=== PATIENT | female | born 1980 | race Caucasian/White ===

== ENCOUNTER 2018-11-07 13:43 | Emergency (ER) | payer MEDICAID, OTHER ==
[~2018-11-07] VITALS: Ht 162.6 cm; Wt 93.4 kg
[2018-11-07 15:40] VITALS: BP 140/93
== END 2018-11-07 16:20 | disposition home or self-care (01) ==
LOC: ER 13:47
DX: F41.9 Anxiety disorder, unspecified (principal); F12.10 Cannabis abuse, uncomplicated; E66.01 Morbid (severe) obesity due to excess calories; Z76.0 Encounter for issue of repeat prescription; Z68.35 Body mass index [BMI] 35.0-35.9, adult

== ENCOUNTER 2018-11-07 20:33 | Emergency (ER) | payer MEDICAID ==
[~2018-11-07] VITALS: Ht 162.6 cm; Wt 93.4 kg
[2018-11-07] MEDS ORDERED: ACCU-CHEK COMFORT CURVE STRIP VI ONE (21:00)
[2018-11-07 21:29] LABS: Basophils # (auto) 0.1 uL; Eosinophils # (auto) 0.1 uL; Hematocrit 39.6 % (36.0-46.0); Hemoglobin 13.3 g/dL (12.2-16.2); Lymphocytes # (auto) 0.9 uL; Lymphocytes % (auto) 8.9 % (10.0-50.0); Mean Corpuscular Hemoglobin 29.7 pg (28.0-32.0); Mean Corpuscular Hgb Conc. 33.5 g/dL (32.0-36.0); Mean Corpuscular Volume 88.7 fL (80.0-100.0); Monocytes # (auto) 0.6 uL; Neutrophils # (auto) 8.5 uL; Neutrophils % (auto) 83.1 % (37.0-80.0); Platelet Count (auto) 271 10^3/uL (140-450); Red Blood Cells 4.46 10^6/uL (4.0-5.20); Red Cell Distribution Width 12.9 % (11.8-14.3); White Blood Cell 10.2 10^3/uL (4.4-10.8)
[2018-11-07 21:46] LABS: Urine Bacteria NONE SEEN /hpf (None Seen); Urine Blood Negative /uL (Negative); Urine Specific Gravity 1.026 (1.001-1.035); Urine WBC 3 /hpf (0 - 5)
[2018-11-07 21:48] LABS: Albumin 3.8 g/dL (3.4-5.0); Calcium 8.8 mg/dL (8.5-10.1)
[2018-11-07 21:52] LABS: BUN/Creatinine Ratio 16.1; Bilirubin, Total 0.5 mg/dL (0.2-1.0); Total Protein 8.1 g/dL (6.4-8.2)
[2018-11-07 22:40] VITALS: BP 128/90
== END 2018-11-08 00:30 | disposition home or self-care (01) ==
LOC: ER 20:36 → UNDOADMIN 20:37 → OVERFLOW 20:37 → ER 11-08 00:20
DX: N39.0 Urinary tract infection, site not specified (principal); F41.1 Generalized anxiety disorder; F43.0 Acute stress reaction; F32.9 Major depressive disorder, single episode, unspecified
CPT/HCPCS: 36415; 80053; 81001; 81025; 82962; 85025; G0378

== ENCOUNTER 2021-04-21 17:47 | Emergency (ER) | payer MEDICAID ==
[~2021-04-21] VITALS: Ht 162.6 cm; Wt 118.0 kg
[2021-04-21 22:00] VITALS: BP 143/74
[2021-04-21] MEDS ORDERED: ALBU108A5 IN (22:18)
[2021-04-21] MEDS ORDERED: PSEU1SYP6 PO (22:18)
[2021-04-21] MEDS ORDERED: DOXY-340 PO (22:18)
[2021-04-21] MEDS ORDERED: PRED20TA2 PO (22:18)
== END 2021-04-21 22:29 | disposition home or self-care (01) ==
LOC: ER 17:47
DX: J06.9 Acute upper respiratory infection, unspecified (principal); R53.83 Other fatigue; Z20.822 Contact with and (suspected) exposure to COVID-19
CPT/HCPCS: 36415; 71045; 87426

== ENCOUNTER 2021-07-31 04:09 | Emergency (ER) | payer MEDICAID ==
[~2021-07-31] VITALS: Ht 162.6 cm; Wt 115.7 kg
[~2021-07-31 04:09] MED LIST: ALBU108A5 IN; DOXY-340 PO; PRED20TA2 PO; PSEU1SYP6 PO
[2021-07-31 07:35] VITALS: BP 143/91
[2021-07-31] MEDS ORDERED: cefTRIAXone SOD 1,000 MG VL IM ONE (07:45)
== END 2021-07-31 07:53 | disposition home or self-care (01) ==
LOC: ER 04:09
DX: K02.9 Dental caries, unspecified (principal)
CPT/HCPCS: 96372; 99283; J0696